=== PATIENT | male | born 1980 | race Caucasian/White ===

== ENCOUNTER 2021-09-24 19:29 | Emergency (ER) | payer BC ==
[2021-09-24] MEDS ORDERED: Acetaminophen/oxyCODONE 325-5 MG Tab PO ONE (21:05)
[2021-09-24] MEDS ORDERED: Erythromycin Base 0.5% Ophth Oint 1 GM Tube EYEBOTH STA (22:22)
== END 2021-09-24 22:38 | disposition home or self-care (01) ==
LOC: JD.ED 19:29 → EDSEX 19:29 → JD.ED 22:38
DX: S05.12XA Contusion of eyeball and orbital tissues, left eye, initial encounter (principal); I10 Essential (primary) hypertension; W22.09XA Striking against other stationary object, initial encounter; Y93.89 Activity, other specified
CPT/HCPCS: 99283; A9270

== ENCOUNTER 2024-04-13 07:40 | Day surgery (SDC) | payer BC ==
[2024-04-13] MEDS ORDERED: Midazolam 1 MG/ML 2 ML SDV ONE (08:27)
[2024-04-13] MEDS ORDERED: Propofol 200 MG/20 ML SDV ONE ×2 (08:27)
[2024-04-13] MEDS ORDERED: fentaNYL 100 MCG/2 ML SDV ONE (08:27)
== END 2024-04-13 09:55 ==
LOC: JD.SDS 07:40
PROVIDERS: ATTEND Family Medicine
DX: Z12.11 Encounter for screening for malignant neoplasm of colon (principal); K31.7 Polyp of stomach and duodenum; K21.00 Gastro-esophageal reflux disease with esophagitis, without bleeding; K57.30 Diverticulosis of large intestine without perforation or abscess without bleeding; K29.70 Gastritis, unspecified, without bleeding; G47.33 Obstructive sleep apnea (adult) (pediatric); E78.2 Mixed hyperlipidemia; E66.01 Morbid (severe) obesity due to excess calories; I10 Essential (primary) hypertension; Z68.41 Body mass index [BMI] 40.0-44.9, adult; Z79.899 Other long term (current) drug therapy
CPT/HCPCS: 43239; 45378; J2250; J2704; J3010; 00813